=== PATIENT | male | born 1950 | race Caucasian/White ===

== ENCOUNTER 2016-10-07 07:14 | Observation (INO) | payer OTHER ==
[2016-10-07] VITALS (7 sets, daily range): BP systolic 134–160; BP diastolic 73–85; PULSE 66–89; TEMP 36.4–36.9; O2SAT 91–98; Ht 175.3 cm; Wt 81.6 kg
[~2016-10-07] VITALS: Ht 175.3 cm; Wt 81.6 kg
[~2016-10-07 07:14] MED LIST: ASPEC81 PO; CRS20 PO; CZR50 PO; FENO160T PO; FERR325T5 PO; FLOVENT INH; GLGKIT; HYDR25TA4 PO; IMD/2 PO; IMT100 PO; INSDGI SQ; NVLGI SQ; SILD100T PO; VNTHFA/IN INH
[2016-10-07] MEDS ORDERED: ONDANSETRON INJ 2 MG/ML 2 ML VIAL IV STA (07:27)
[2016-10-07] MEDS ORDERED: SODIUM CHLORIDE 0.9% 1000ML 1,000 ML IV SCH (07:30)
--- NOTE | 2016-10-07 07:30 | EMERGENCY ROOM VISIT NOTE ---
History First contact with patient: 07:21 Chief Complaint: VOMITING Stated Complaint: VOMITING/DIZZINESS Nursing Triage Summary: DIZZINESS AND VOMITING SINCE 0200. History of Present Illness The patient is a 66 year old male who presents to the Emergency Room with complaints of dizziness and nausea/vomiting since 2am today. He reports he was sleeping and at 2am woke up with the room spinning. He reports he then started vomiting frequently at 4am, and noticed feeling more dizzy than before. He is a type 1 diabetic and had taken his Lantus last night but has not taken Novolog yet today. He denies any chest or abdominal pain, or shortness of breath. He reports he was retching frequently as well. He currently still feels dizzy. He later revealed he has had a 10 year history of bilateral tinnitus. He denies any other ear, nose, or throat symptoms. He denies any recent flights or travel. Review of Systems See HPI for pertinent positives & negatives. A total of 10 systems reviewed and were otherwise negative. Past Medical/Surgical History Medical Problems: (1) ASTHMA, UNSPECIFIED (2) Diabetes mellitus (3) ESOPHAGEAL REFLUX (4) HYPERLIPIDEMIA NEC/NOS (5) SYNCOPE AND COLLAPSE Social History Smoking Status: Never Smoker Alcohol Use: none Drug Use: none Marital Status: Housing Status: lives with family Occupation Status: employed Current/Historical Medications Scheduled Aspirin (Aspirin Ec), 81 MG PO DAILY Hydrochlorothiazide (Hydrochlorothiazide), 25 MG PO DAILY Insulin Aspart (Novolog), SC SS Insulin Glargine (Lantus), 43 UNITS SC DAILY Losartan Potassium (Cozaar), 100 MG PO DAILY Pravastatin Sod (Pravastatin Sodium), 1 TAB PO DAILY Rosuvastatin Calcium (Crestor), 20 MG PO QPM Scheduled PRN Albuterol (Ventolin Hfa), 2 PUFFS INH Q4 PRN for SOB/Wheezing Fluticasone Propionate (Flovent Hfa), 2 PUFFS INH BID PRN for SOB/Wheezing Loperamide Hcl (Imodium), 2 MG PO Q4 PRN for PRN Miscellaneous Medications Glucagon (Glucagon Emergency Kit) Allergies Coded Allergies: CI Pigment Blue 63 (Verified Allergy, Unknown, ANAPHYLAXIS, 10/07/16) syncope Oseltamivir (Verified Allergy, Unknown, ANAPHYLAXIS, 10/07/16) syncope Lisinopril (Verified Adverse Reaction, Unknown, RASH, 10/07/16) Physical Exam Vital Signs Date Time Temp Pulse Resp B/P Pulse Ox O2 Delivery O2 Flow Rate FiO2 10/07/16 10:59 64 145/75 97 Room Air 82 147/85 79 159/83 10/07/16 10:57 64 18 10/07/16 09:14 67 18 142/73 95 Room Air 10/07/16 07:21 66 10/07/16 07:20 36.9 66 18 152/89 93 Room Air Physical Exam GENERAL: Awake, alert, well appearing, no distress HENT: Normocephalic, atraumatic. TM's normal. Oropharynx unremarkable. EYES: PERRL. Normal conjunctiva. Sclera non-icteric. Fundi normal. EOMI NECK: Supple. No nuchal rigidity. FROM. RESPIRATORY: CTA CARDIAC: RRR. Extremities warm and well perfused. ABDOMEN: Soft, non distended. No tenderness to palpation. No rebound or guarding. No masses. MUSCULOSKELETAL: Unremarkable. EXTREMITIES: No edema. No discoloration. Gross motor strength 5/5 bilaterally. NEURO: Normal sensorium. No sensory or motor deficits noted. Gait normal. Speech normal. Cranial nerves two through 12 intact. SKIN: Petechiae noted bilaterally below eyes. LYMPH: No adenopathy. Medical Decision & Procedures Laboratory Results 10/07/16 07:24 Red Blood Count 5.16, Mean Corpuscular Volume 78.5, Mean Corpuscular Hemoglobin 27.1, Mean Corpuscular Hemoglobin Concent 34.6, Mean Platelet Volume 8.9, Neutrophils (%) (Auto) 71.1, Lymphocytes (%) (Auto) 20.2, Monocytes (%) (Auto) 6.9, Eosinophils (%) (Auto) 1.0, Basophils (%) (Auto) 0.2, Neutrophils # (Auto) 3.49, Lymphocytes # (Auto) 0.99, Monocytes # (Auto) 0.34, Eosinophils # (Auto) 0.05, Basophils # (Auto) 0.01 10/07/16 07:24 Test 10/07/16 07:24 10/07/16 09:10 10/07/16 10:55 White Blood Count 4.91 K/uL (4.8-10.8) Red Blood Count 5.16 M/uL (4.7-6.1) Hemoglobin 14.0 g/dL (14.0-18.0) Hematocrit 40.5 % (42-52) Mean Corpuscular Volume 78.5 fL (80-100) Mean Corpuscular Hemoglobin 27.1 pg (25-34) Mean Corpuscular Hemoglobin Concent 34.6 g/dl (32-36) Platelet Count 154 K/uL (130-400) Mean Platelet Volume 8.9 fL (7.4-10.4) Neutrophils (%) (Auto) 71.1 % Lymphocytes (%) (Auto) 20.2 % Monocytes (%) (Auto) 6.9 % Eosinophils (%) (Auto) 1.0 % Basophils (%) (Auto) 0.2 % Neutrophils # (Auto) 3.49 K/uL (1.4-6.5) Lymphocytes # (Auto) 0.99 K/uL (1.2-3.4) Monocytes # (Auto) 0.34 K/uL (0.11-0.59) Eosinophils # (Auto) 0.05 K/uL (0-0.5) Basophils # (Auto) 0.01 K/uL (0-0.2) RDW Standard Deviation 39.8 fL (36.4-46.3) RDW Coefficient of Variation 14.1 % (11.5-14.5) Immature Granulocyte % (Auto) 0.6 % Immature Granulocyte # (Auto) 0.03 K/uL (0.00-0.02) Anion Gap 10.0 mmol/L (3-11) Est Creatinine Clear Calc Drug Dose 47.2 ml/min Estimated GFR () 54.7 Estimated GFR (Non- 47.2 BUN/Creatinine Ratio 12.3 (10-20) Calcium Level 9.2 mg/dl (8.5-10.1) Total Bilirubin 0.4 mg/dl (0.2-1) Aspartate Amino Transf (AST/SGOT) 18 U/L (15-37) Alanine Aminotransferase (ALT/SGPT) 23 U/L (12-78) Alkaline Phosphatase 59 U/L (45-117) Total Protein 6.7 gm/dl (6.4-8.2) Albumin 3.7 gm/dl (3.4-5.0) Globulin 3.0 gm/dl (2.5-4.0) Albumin/Globulin Ratio 1.2 (0.9-2) Lipase 170 U/L (73-393) Beta-Hydroxybutyric Acid 1.11 mg/dL (0.2-2.81) Urine Color YELLOW Urine Appearance CLEAR (CLEAR) Urine pH 7.5 (4.5-7.5) Urine Specific [place] 1.015 (1.000-1.030) Urine Protein NEG (NEG) Urine Glucose (UA) 1+ (NEG) Urine Ketones NEG (NEG) Urine Occult Blood TRACE (NEG) Urine Nitrite NEG (NEG) Urine Bilirubin NEG (NEG) Urine Urobilinogen NEG (NEG) Urine Leukocyte Esterase NEG (NEG) Urine RBC 5-10 /hpf (0-4) Urine WBC 1-5 /hpf (0-5) Urine Epithelial Cells 10-20 /lpf (0-5) Urine Bacteria NEG (NEG) Urine Hyaline Casts 1-5 /lpf (0-5) Bedside Glucose 161 mg/dl (70-99) Medications Administered Medications (Trade) Dose Ordered Sig/Jeana Route Start Time Stop Time Status Last Admin Dose Admin Sodium Chloride (Nss 1000ml) 1,000 ml @ 999 mls/hr Q1H1M IV 10/07/16 07:30 10/07/16 08:30 DC 10/07/16 07:37 999 MLS/HR Ondansetron HCl (Zofran Inj) 4 mg NOW STAT IV 10/07/16 07:27 10/07/16 07:29 DC 10/07/16 07:37 4 MG Lorazepam (Ativan Inj) 1 mg NOW STAT IV 10/07/16 07:47 10/07/16 07:48 DC 10/07/16 07:59 1 MG Meclizine HCl 25 mg 25 mg NOW STAT PO 10/07/16 10:12 10/07/16 10:13 DC 10/07/16 10:58 25 MG Sodium Chloride (Nss 500ml) 500 ml @ 999 mls/hr Q31M STAT IV 10/07/16 10:15 10/07/16 10:45 DC 10/07/16 10:15 999 MLS/HR Methylprednisolone Sodium Succinate (Solu-Medrol IV) 125 mg NOW STAT IV 10/07/16 10:34 10/07/16 10:48 DC 10/07/16 10:58 125 MG ED Course 7:24: I evaluated the patient in room B2. His was present at that time. 7:29: I ordered a CBC, CMP, Lipase, ketone level, 4mg IV Zofran, NSS bolus, Urinalysis/Microscopy. 7:40: Dr. Easton also evaluated the patient. We added 1mg IV Ativan to help his dizziness. 9:47: The patient reported not feeling better. We ordered a CT scan of the head to evaluate for any potential causes. 10:00: The patient reported continued his nausea had improved. We gave him a PO challenge of water and crackers which he tolerated somewhat, but he still felt very dehydrated, so I gave him a further 500mL bolus over 30 minutes. 10:30: I discussed further care with the patient - he reported his dizziness was persistent. We gave him 125mg Solu-Medrol IV and discussed completing 4 days of 40mg PO Prednisone daily. The patient agrees he will have to be vigilant about his sugars. 11:10: I went to see the patient again. He had received Meclizine and Solu- Medrol. He reports he still feels incredibly dizzy. He is unable to get off the bed due to this. He reports when he tried he fell backwards. He does not feel safe to go home due to his house having so many stairs as well. 11:16: I discussed the case with Brigid of the [facility]. The patient will be admitted for further evaluation of his dizziness and ambulatory disfunction. Medical Decision This is a 66 yo type 1 diabetic male who presents with dizziness and vomiting - differential includes viral gastroenteritis, vertigo, diabetic ketoacidosis, cholecystitis, dehydration, or electrolyte abnormalities. As he would not tolerate PO meclizine he was given IV Ativan to help with his dizziness. Impression Primary Impression: Dizziness Departure Information Dispostion Being Evaluated By Hospitalist Condition GOOD Referrals Kvng Lomeli M.D. (PCP) Patient Instructions My [facility] Resident Tracking Resident Involvement: Resident Care Provided Care Provided: Adult ED
[2016-10-07 07:39] LABS: BASO % 0.2 %; BASO ABS # 0.01 K/uL (0-0.2); COMPLETE YES; HEMATOCRIT 40.5 % (42-52); IG% 0.6 %; LYMPH % 20.2 %; LYMPH ABS # 0.99 K/uL (1.2-3.4); MEAN CELL VOLUME 78.5 fL (80-100); MEAN CORPUSCULAR HEMOGLOBIN 27.1 pg (25-34); MEAN CORPUSCULAR HGB CONC 34.6 g/dl (32-36); MEAN PLATELET VOLUME 8.9 fL (7.4-10.4); MONO % 6.9 %; NEUT % 71.1 %; PLATELET COUNT 154 K/uL (130-400); RED BLOOD COUNT 5.16 M/uL (4.7-6.1); WHITE BLOOD COUNT 4.91 K/uL (4.8-10.8)
[2016-10-07] MEDS ORDERED: LORAZEPAM 2 MG/ML 1 ML VIAL IV STA (07:47)
[2016-10-07 07:52] LABS: BUN/CREATININE RATIO 12.3 (10-20); CALCIUM 9.2 mg/dl (8.5-10.1); CREATININE 1.5 mg/dl (0.60-1.40); POTASSIUM 3.8 mmol/L (3.5-5.1)
[2016-10-07 07:54] LABS: ALB/GLOB RATIO 1.2 (0.9-2); BETA-HYDROXYBUTYRATE 1.11 mg/dL (0.2-2.81)
[2016-10-07] MEDS ORDERED: FLVHFA110 INH (08:07)
[2016-10-07] MEDS ORDERED: ASPI81TA28 PO (08:07)
[2016-10-07] MEDS ORDERED: PRVHFAIN INH (08:07)
[2016-10-07] MEDS ORDERED: HYDR25TA5 PO (08:07)
[2016-10-07] MEDS ORDERED: NVLG SC ×2 (08:07→12:13)
[2016-10-07] MEDS ORDERED: IMD/2 PO (08:07)
[2016-10-07] MEDS ORDERED: INSDGI SC (08:07)
[2016-10-07] MEDS ORDERED: ROSU20TA PO (08:07)
[2016-10-07] MEDS ORDERED: GLGKIT (08:07)
[2016-10-07] MEDS ORDERED: LOSA1TAB38 PO (08:07)
[2016-10-07] MEDS ORDERED: PRVC10 PO (08:10)
[2016-10-07 09:30] LABS: URINE APPEARANCE CLEAR (CLEAR); URINE BILIRUBIN NEG (NEG); URINE COLOR YELLOW; URINE NITRITE NEG (NEG); URINE PH 7.5 (4.5-7.5); URINE SPECIFIC GRAVITY 1.015 (1.000-1.030); UROBILINOGEN NEG (NEG)
[2016-10-07 09:32] LABS: MANUAL MICROSCOPIC REQUIRED? YES; REVIEW REQ? NO; SULFASALICYLIC ACID NEG (NEG)
[2016-10-07 09:34] LABS: URINE BACTERIA NEG (NEG); ZZUR CULT IF INDIC CLEAN CATCH NO
--- NOTE | 2016-10-07 10:11 | DIAGNOSTIC IMAGING REPORT ---
HEAD CT NONCONTRAST CT DOSE: 614.27 mGy.cm HISTORY: new dizziness TECHNIQUE: Multiaxial CT images of the head were performed without the use of intravenous contrast. Automated exposure control was utilized for this study. Comparison: Head CT 08/20/2016. Findings: The paranasal sinuses and mastoid air cells are clear. The calvarium and skull base are intact. The ventricles and sulci are within normal limits. There is no mass, hematoma, midline shift, or acute infarct. Impression: No acute intracranial abnormality. Electronically signed by: Jorge Alberto Burnett M.D. 10/07/2016 10:10 AM Dictated Date/Time: 10/07/2016 10:05 AM
[2016-10-07] MEDS ORDERED: MECLIZINE HCL 25 MG TAB PO STA (10:12)
[2016-10-07] MEDS ORDERED: SODIUM CHLORIDE 0.9% 500ML 500 ML IV STA (10:15)
[2016-10-07] MEDS ORDERED: METHYLPREDNISOLONE 125 MG VIAL IV STA (10:34)
[2016-10-07] MEDS ORDERED: ONDANSETRON INJ 2 MG/ML 2 ML VIAL IV PRN (12:00)
[2016-10-07] MEDS ORDERED: ACETAMINOPHEN 325 MG TAB PO PRN (12:00)
[2016-10-07] MEDS ORDERED: FENO160T4 PO (12:13)
[2016-10-07] MEDS ORDERED: INSDGIPEN SC (12:13)
[2016-10-07] MEDS ORDERED: FLUTICASONE HFA 110MCG INHALER INH PRN (12:15)
[2016-10-07] MEDS ORDERED: GLUCOSE 10 TABS/TUBE PO PRN (12:15)
[2016-10-07] MEDS ORDERED: GLUCAGON FOR INJ 1 MG VIAL SQ PRN (12:15)
[2016-10-07] MEDS ORDERED: ALBUTEROL HFA 8 GM INHALER INH PRN (12:15)
[2016-10-07] MEDS ORDERED: DEXTROSE 50% 50 ML SYR IV PRN (12:15)
[2016-10-07] MEDS ORDERED: GLUCOSE 40% GEL 15 GM TUBE PO PRN (12:15)
--- NOTE | 2016-10-07 12:44 | History and Physical ---
History & Physical Date & Time of Service: Oct 07, 2016 at 12:19 Chief Complaint: Vomiting/Dizziness Primary Care Physician: Shana Corbett PA-C History of Present Illness Source: patient This is a 66 y/o male with PMH of DM 1, HTN, Dyslipidemia and other problems as outlined below who presents to the ED c/o dizziness that began this morning. Pt reports that he woke up around 0200 with "the room spinning" around him. His sxs were aggravated with laying on his L side and ambulating. Sxs were assoc with nausea and 3 episodes of vomiting. He has never had similar sxs in the past. Pt reports that he has had tinnitus in both his ears for 7-10 years but was told there was nothing that could be done for it. Pt has a 1 month history of URI sxs. Pt denies fever/chills, diplopia, diaphoresis, chest pain, palpitations, SOB, abd pain, bowel or bladder issues, LE edema, calf pain, unilateral weakness, slurred speech, facial droop or difficulty swallowing. In the ED, pt has + orthostatic vitals. electrolytes WNL. Creat 1.5. CT head is negative. Pt currently feel okay as long as he does not move. He will be admitted for further evaluation and treatment. Past Medical/Surgical History Medical Problems: (1) Asthma Status: Chronic (2) CKD (chronic kidney disease) stage 3, GFR 30-59 ml/min Status: Chronic (3) Diabetes mellitus type I Status: Chronic (4) Dyslipidemia Status: Chronic (5) HTN (hypertension) Status: Chronic Surgical Problems: (1) H/O cataract removal with insertion of prosthetic lens Status: Resolved Social History Smoking Status: Former Smoker (2 pack year history; quit at 17y/o ) Alcohol Use: none Drug Use: none Marital Status: Housing status: lives with family Occupational Status: employed Immunizations History of Influenza Vaccine: Yes Influenza Vaccine Date: May 19, 2012 History of Tetanus Vaccine?: No Tetanus Immunization Date: Apr 30, 2010 History of Pneumococcal: Yes Pneumococcal Date: Dec 17, 2010 History of Hepatitis B Vaccine: No Multi-Drug Resistant Organisms History of MDRO: No Allergies Coded Allergies: CI Pigment Blue 63 (Verified Allergy, Unknown, ANAPHYLAXIS, 10/07/16) syncope Oseltamivir (Verified Allergy, Unknown, ANAPHYLAXIS, 10/07/16) syncope Lisinopril (Verified Adverse Reaction, Unknown, RASH, 10/07/16) Home Medications Scheduled Aspirin (Aspirin Ec), 81 MG PO DAILY Fenofibrate (Lofibra), 160 MG PO DAILY Hydrochlorothiazide (Hydrochlorothiazide), 25 MG PO DAILY Insulin Aspart (Novolog), 75 UNITS SC DAILY Insulin Glargine (Lantus Solostar), 43 UNITS SC QPM Losartan Potassium (Cozaar), 100 MG PO DAILY Rosuvastatin Calcium (Crestor), 20 MG PO QPM Scheduled PRN Albuterol (Ventolin Hfa), 2 PUFFS INH Q4 PRN for SOB/Wheezing Fluticasone Propionate (Flovent Hfa), 2 PUFFS INH BID PRN for SOB/Wheezing Loperamide Hcl (Imodium), 2 MG PO Q4 PRN for PRN Miscellaneous Medications Glucagon (Glucagon Emergency Kit) Review of Systems Constitutional: No chills, No fatigue, No fever, No sweats, No weakness Eyes: No diplopia, No worsening of vision ENT: No hearing loss, No trouble swallowing Respiratory: No cough, No shortness of breath Cardiovascular: No chest pain, No claudication, No edema Abdomen: + nausea, + vomiting, No constipation, No diarrhea, No pain Musculoskeletal: No calf pain, No swelling Genitourinary - Male: No dysuria Neurologic: + balance problems, + vertigo, No weakness Psychiatric: No depression symptoms Endocrine: No fatigue Hematologic / Lymphatic: No abnormal bleeding/bruising Integumentary: No new/changing skin lesions Physical Exam Vital Signs Date Time Temp Pulse Resp B/P Pulse Ox O2 Delivery O2 Flow Rate FiO2 10/07/16 12:03 73 10/07/16 10:59 64 145/75 97 Room Air 82 147/85 79 159/83 10/07/16 10:57 64 18 10/07/16 09:14 67 18 142/73 95 Room Air 10/07/16 07:21 66 10/07/16 07:20 36.9 66 18 152/89 93 Room Air General Appearance: WD/WN, no apparent distress, + pertinent finding (Pt is sitting up in bed with at bedside ) Head: normocephalic, atraumatic Eyes: normal inspection, PERRL, + pertinent finding (horizontal nystagmus with EOM) ENT: normal ENT inspection, TMs normal (unable to visualize R TM due to cerumen impaction) Neck: supple Respiratory/Chest: chest non-tender, lungs clear, normal breath sounds, no respiratory distress Cardiovascular: regular rate, rhythm, no edema, no murmur Abdomen/GI: normal bowel sounds, non tender, soft Back: normal inspection Extremities/Musculoskelatal: normal inspection, no calf tenderness, no pedal edema 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, no motor/sensory deficits, alert, normal mood/affect, oriented x 3 Skin: normal color, warm/dry Diagnostics Laboratory Results Results Past 24 Hours Test 10/07/16 07:24 10/07/16 09:10 10/07/16 10:55 Range/Units White Blood Count 4.91 4.8-10.8 K/uL Red Blood Count 5.16 4.7-6.1 M/uL Hemoglobin 14.0 14.0-18.0 g/dL Hematocrit 40.5 42-52 % Mean Corpuscular Volume 78.5 80-100 fL Mean Corpuscular Hemoglobin 27.1 25-34 pg Mean Corpuscular Hemoglobin Concent 34.6 32-36 g/dl Platelet Count 154 130-400 K/uL Mean Platelet Volume 8.9 7.4-10.4 fL Neutrophils (%) (Auto) 71.1 % Lymphocytes (%) (Auto) 20.2 % Monocytes (%) (Auto) 6.9 % Eosinophils (%) (Auto) 1.0 % Basophils (%) (Auto) 0.2 % Neutrophils # (Auto) 3.49 1.4-6.5 K/uL Lymphocytes # (Auto) 0.99 1.2-3.4 K/uL Monocytes # (Auto) 0.34 0.11-0.59 K/uL Eosinophils # (Auto) 0.05 0-0.5 K/uL Basophils # (Auto) 0.01 0-0.2 K/uL RDW Standard Deviation 39.8 36.4-46.3 fL RDW Coefficient of Variation 14.1 11.5-14.5 % Immature Granulocyte % (Auto) 0.6 % Immature Granulocyte # (Auto) 0.03 0.00-0.02 K/uL Sodium Level 144 136-145 mmol/L Potassium Level 3.8 3.5-5.1 mmol/L Chloride Level 104 98-107 mmol/L Carbon Dioxide Level 30 21-32 mmol/L Anion Gap 10.0 3-11 mmol/L Blood Urea Nitrogen 19 7-18 mg/dl Creatinine 1.50 0.60-1.40 mg/dl Est Creatinine Clear Calc Drug Dose 47.2 ml/min Estimated GFR () 54.7 Estimated GFR (Non- 47.2 BUN/Creatinine Ratio 12.3 10-20 Random Glucose 208 70-99 mg/dl Calcium Level 9.2 8.5-10.1 mg/dl Total Bilirubin 0.4 0.2-1 mg/dl Aspartate Amino Transf (AST/SGOT) 18 15-37 U/L Alanine Aminotransferase (ALT/SGPT) 23 12-78 U/L Alkaline Phosphatase 59 45-117 U/L Total Protein 6.7 6.4-8.2 gm/dl Albumin 3.7 3.4-5.0 gm/dl Globulin 3.0 2.5-4.0 gm/dl Albumin/Globulin Ratio 1.2 0.9-2 Lipase 170 73-393 U/L Beta-Hydroxybutyric Acid 1.11 0.2-2.81 mg/dL Urine Color YELLOW Urine Appearance CLEAR CLEAR Urine pH 7.5 4.5-7.5 Urine Specific [place] 1.015 1.000-1.030 Urine Protein NEG NEG Urine Glucose (UA) 1+ NEG Urine Ketones NEG NEG Urine Occult Blood TRACE NEG Urine Nitrite NEG NEG Urine Bilirubin NEG NEG Urine Urobilinogen NEG NEG Urine Leukocyte Esterase NEG NEG Urine RBC 5-10 0-4 /hpf Urine WBC 1-5 0-5 /hpf Urine Epithelial Cells 10-20 0-5 /lpf Urine Bacteria NEG NEG Urine Hyaline Casts 1-5 0-5 /lpf Bedside Glucose 161 70-99 mg/dl Diagnostic Radiology HEAD CT IMPRESSION: No acute intracranial abnormality. Impression Assessment and Plan VERTIGO LIKELY DUE TO VESTIBULAR NEURITIS pt presented with vertigo assoc with N/V; recent h/o URI -admit observation status to med/surg -likely due to vestibular neuritis in setting of recent h/o URI -+ orthostatic vitals in ED; otherwise stable -CT head is negative; will obtain brain MRI for further evaluation to ensure stroke not present -electrolytes unremarkable -received IVF in ED -will start Prednisone taper -consult neuro, Dr. Anguiano-pending input -monitor NAUSEA/VOMITING: RESOLVED -likely due to above -electrolytes unremarkable -monitor CKD STAGE 3 -creatinine at baseline around 1.5 -received IVF in ED -continue to monitor with daily prp and avoid nephrotoxic agents when able DM 1 -last A1C 7.6 -hold NovoLog -cont Lantus and start ISS -monitor BSG AC HS ASTHMA -stable; no evidence of acute exacerbation -cont PRN inhaler HTN -BP mildly elevated; did not take meds this morning -cont HCTZ and losartan -monitor DYSLIPIDEMIA -cont statin and fenofibrate DVT PROPHYLAXIS -subq heparin CODE STATUS -FULL CODE status DISPO Observation status until further workup is complete. Pt seen in collaboration with Dr. Perera. Please see her addendum for further details. Thanks! 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 Y/N: Yes Risk Level: Moderate Given or contraindicated: Unfractionated heparin SQ
[2016-10-07] MEDS ORDERED: MECLIZINE HCL 25 MG TAB PO PRN (12:45)
[2016-10-07] MEDS ORDERED: LORAZEPAM 2 MG/ML 1 ML VIAL IV PRN (12:45)
--- NOTE | 2016-10-07 12:55 | Progress Note ---
Progress Note ATTENDING ADDENDUM: I have seen and examined the patient and agree with the assessment and plan as stated above. This is a 66 yoM with risk factors for stroke including diabetes and hyperlipidemia. The patient is reporting acute postural instability, however, states that once he gets ambulating he feels OK. The dizziness is worse with head movement, but worse still with reclining his HOB or going from sitting to standing. 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 He reports recently having a long protracted URI illness, which he describes as a common cold. This began early August and lasted the entire month. He reports only taking cough drops for his symptoms. He does have a 10 yr history of bilateral tinnitus and reports that this is worse since this morning, L>R. He reports feeling like he wants to lean toward the left side. He denies any sensation loss, difficulty speaking or swallowing , difficulty moving his arms, headache, photophobia, sonophobia. On exam his orthostatics are positive but he is otherwise hemodynamically stable with 145/79 , P 66, afebrile. MS is intact. CN 2-12 intact with peripheral nystagmus noted; no vertical nystagmus seen. Strength 5/5 throughout all extremities and hands. Sensation intact throughout. Reflexes could not be elicited in knees, ankles or forearm. No dysmetria and coordination checked with heel to escobar (while seated) intact. Pt could not stand or walk 2/2 extreme dizziness and fall risk. Chest and heart exam were normal. EKG SR 65, CT head negative, creat at baseline. Does not appear to be clinically dehydrated. Clinical picture favors vestibular neuritis, however, will obtain MRI brain to look for cerebellar stroke. Will not obtain MRA in order to avoid possibly unnecessary contrast exposure in this man with CKD III. The patient and I are in agreement with this, and he can undergo this later if necessary. Will provide supportive care with antiemetics, meclizine, and ativan as needed for dizziness and treat with a short prednisone taper. Appreciate Neurology consult to ensure central causes are ruled out. Otherwise, agree with plan as stated above. Also, noticed RBCs and blood on UA. Would recommend repeat as outpatient. Dorothy Mckinney DO (Hospitalist)
[2016-10-07] MEDS ORDERED: IV FLUIDS COMPLETED PRN ×2 (14:00)
[2016-10-07 14:36] LABS: PROTHROMBIN TIME (PATIENT) 10.7 SECONDS (9.0-12.0)
--- NOTE | 2016-10-07 15:34 | DIAGNOSTIC IMAGING REPORT ---
MRI OF THE BRAIN WITHOUT AND WITH IV CONTRAST CLINICAL HISTORY: vertigo/ambulatory dysfunction COMPARISON STUDY: No previous studies for comparison. TECHNIQUE: Utilizing a 1.5 Tanika magnet and dedicated coil, multiplanar, multiecho imaging of the brain was performed pre and postcontrast administration. IV administration of 8 mL of Gadavist contrast was uneventful. FINDINGS: Diffusion-weighted images show no acute ischemic insult. Signal characteristics are otherwise unremarkable. Ventricular system is midline. There is no evidence for abnormal postcontrast enhancement. IMPRESSION: Normal study. Electronically signed by: Brian Plascencia M.D. 10/07/2016 3:33 PM Dictated Date/Time: 10/07/2016 3:32 PM
[2016-10-07] MEDS ORDERED: LORAZEPAM INJ 1 MG in SYRINGE 0.5 ML IV PRN (16:00)
--- NOTE | 2016-10-07 16:10 | Neurology Consultation ---
Neurology Consultation Date of Consultation: Oct 07, 2016. Attending Physician: Kong Barraza MD Primary Care Physician: Shana Corbett PA-C Reason for Consultation: vertigo History of Present Illness Source: patient, spouse Leo is a 66 year old male with PMH of DM 1, HTN, DL. Who was seen in the ED because of dizziness that began this morning. He woke up around 0200 with "the room spinning" around him. He thought is may be his DM but he had no sweating which usually happens when his sugar is low. He fell back to sleep and 2 hours later he woke with the same symptoms he tried to walk to the bathroom but the room spinning was so bad he couldn't walk. He had nausea and 3 episodes of vomiting. He denies having any symptoms like this in the past. 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 He did have a recent URI. Pt denies fever/chills, diplopia, diaphoresis, chest pain, palpitations, SOB, abdominal pain, slurred speech, swallowing issues, vision changes, one side weakness, numbness or tingling. Orthostatic vitals were completed in the ED. There is no family history of vertigo other than his . Both of his parents are , he has one sister no contact with and no children. His DM is controlled fairly well with insulin and HTN usually runs a little high. Social History Smoking Status: Never smoker Alcohol Use: none Drug Use: none Marital Status: Housing Status: lives with family Occupation Status: employed Allergies Coded Allergies: CI Pigment Blue 63 (Verified Allergy, Unknown, ANAPHYLAXIS, 10/07/16) syncope Oseltamivir (Verified Allergy, Unknown, ANAPHYLAXIS, 10/07/16) syncope Lisinopril (Verified Adverse Reaction, Unknown, RASH, 10/07/16) Current Inpatient Medications Current Inpatient Medications Medications (Trade) Dose Ordered Sig/Jeana Route Start Time Stop Time Status Last Admin Dose Admin Heparin Sodium (Porcine) (Heparin Sq 5000 Unit/0.5ml) 5,000 unit Q8H SQ 10/07/16 22:00 11/06/16 21:59 Acetaminophen (Tylenol Tab) 650 mg Q4H PRN PO 10/07/16 12:00 11/06/16 11:59 Ondansetron HCl (Zofran Inj) 4 mg Q6H PRN IV 10/07/16 12:00 11/06/16 11:59 Insulin Aspart (novoLOG ASPART) SLIDING SCALE If C... ACHS SC 10/07/16 16:30 11/06/16 16:29 Glucose (Glucose 40% Gel) 15-30 GRAMS 15 GRAMS... UD PRN PO 10/07/16 12:15 11/06/16 12:14 Glucose (Glucose Chew Tab) 4-8 Tablets 4 Tabl... UD PRN PO 10/07/16 12:15 11/06/16 12:14 Dextrose (Dextrose 50% 50ML Syringe) 25-50ML OF 50% DW IV FOR... UD PRN IV 10/07/16 12:15 11/06/16 12:14 Glucagon (Glucagon Inj) 1 mg UD PRN SQ 10/07/16 12:15 11/06/16 12:14 Albuterol (Ventolin Hfa Inhaler) 2 puffs Q4 PRN INH 10/07/16 12:15 11/06/16 12:14 Aspirin (Ecotrin Tab) 81 mg DAILY PO 10/08/16 09:00 11/07/16 08:59 Fluticasone Propionate (Flovent Hfa 110MCG Inhaler) 2 puffs BID PRN INH 10/07/16 12:15 11/06/16 12:14 Hydrochlorothiazide (Hydrochlorothiazide Tab) 25 mg DAILY PO 10/08/16 09:00 11/07/16 08:59 Insulin Glargine (Lantus Solostar Pen) 43 unit QPM SC 10/07/16 21:00 11/06/16 20:59 Losartan Potassium (coZAAR TAB) 100 mg DAILY PO 10/08/16 09:00 11/07/16 08:59 Rosuvastatin Calcium (Crestor Tab) 20 mg QPM PO 10/07/16 21:00 11/06/16 20:59 Miscellaneous Information (Order Awaiting Action) 1 ea QS N/A 10/07/16 16:00 11/06/16 15:59 Prednisone (PredniSONE TAB) 60 mg Taper Q24H PO 10/07/16 09:00 10/17/16 08:59 Lorazepam (Ativan Inj) 1 mg Q8H PRN IV 10/07/16 12:45 11/06/16 12:44 Meclizine HCl (Antivert Tab) 25 mg Q6H PRN PO 10/07/16 12:45 11/06/16 12:44 Miscellaneous 1 ea 1 ea PRN PRN N/A 10/07/16 14:00 10/07/17 13:59 Lorazepam/Syringe (Ativan Inj/ Syringe) 1 ml @ 1 mls/min Q8H PRN IV 10/07/16 16:00 11/06/16 15:59 Physical Exam Vital Signs (Past 24 Hrs): Date Time Temp Pulse Resp B/P Pulse Ox O2 Delivery O2 Flow Rate FiO2 10/07/16 15:40 36.9 73 18 153/85 95 Room Air 10/07/16 14:10 70 16 148/84 94 Room Air 10/07/16 13:04 62 18 148/78 98 Room Air 10/07/16 12:04 36.9 66 18 145/79 98 Room Air 10/07/16 12:03 73 10/07/16 10:59 64 145/75 97 Room Air 82 147/85 79 159/83 10/07/16 10:57 64 18 10/07/16 09:14 67 18 142/73 95 Room Air 10/07/16 07:21 66 10/07/16 07:20 36.9 66 18 152/89 93 Room Air Physical Exam: Constitutional: appearance nourished, healthy and normal Ears, Nose, Mouth and Throat: mucous membranes moist, no injection and skin normal, eyes normal Cardiovascular: normal S-1 and S-2 and regular rate and rhythm Respiratory: clear to auscultation (CTA) and no rales, ronchi or wheeze Musculoskeletal: no peripheral edema and good distal pulses Skin: no stigmata of neurocutaneous disease noted and normal and intact Eyes: extraocular muscles intact (EOMI) and pupils equal, round and reactive to light (PERRL), good vascular pulsations, disc flat NEUROLOGIC EXAMINATION: Mental status: Alert and interactive Oriented to full date and location Oriented to person Speech fluent with no evidence of aphasia Cranial Nerves smile eye brow raise symmetric, tongue midline Reflexes: Deep tendon reflexes were symmetrical and graded 2/5. Plantar responses were flexor. Sensory: no deficit to cool or vibration, GT proprioception in tact sitting up in bed, Jose Luis maneuver done to left, nystagmus which is fatigable, x 2 with no vomiting Coordination: finger to nose with no bi pass or tremor Gait/Stance: sitting up in bed Motor: Negative for pronator drift of out stretched arms with eyes closed. 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91 K/uL (4.8-10.8) Red Blood Count 5.16 M/uL (4.7-6.1) Hemoglobin 14.0 g/dL (14.0-18.0) Hematocrit 40.5 % (42-52) Mean Corpuscular Volume 78.5 fL (80-100) Mean Corpuscular Hemoglobin 27.1 pg (25-34) Mean Corpuscular Hemoglobin Concent 34.6 g/dl (32-36) Platelet Count 154 K/uL (130-400) Mean Platelet Volume 8.9 fL (7.4-10.4) Neutrophils (%) (Auto) 71.1 % Lymphocytes (%) (Auto) 20.2 % Monocytes (%) (Auto) 6.9 % Eosinophils (%) (Auto) 1.0 % Basophils (%) (Auto) 0.2 % Neutrophils # (Auto) 3.49 K/uL (1.4-6.5) Lymphocytes # (Auto) 0.99 K/uL (1.2-3.4) Monocytes # (Auto) 0.34 K/uL (0.11-0.59) Eosinophils # (Auto) 0.05 K/uL (0-0.5) Basophils # (Auto) 0.01 K/uL (0-0.2) RDW Standard Deviation 39.8 fL (36.4-46.3) RDW Coefficient of Variation 14.1 % (11.5-14.5) Immature Granulocyte % (Auto) 0.6 % Immature Granulocyte # (Auto) 0.03 K/uL (0.00-0.02) Prothrombin Time 10.7 SECONDS (9.0-12.0) Prothromb Time International Ratio 1.0 (0.9-1.1) Activated Partial Thromboplast Time 24.7 SECONDS (21.0-31.0) Partial Thromboplastin Ratio 1.0 Anion Gap 10.0 mmol/L (3-11) Est Creatinine Clear Calc Drug Dose 47.2 ml/min Estimated GFR () 54.7 Estimated GFR (Non- 47.2 BUN/Creatinine Ratio 12.3 (10-20) Calcium Level 9.2 mg/dl (8.5-10.1) Total Bilirubin 0.4 mg/dl (0.2-1) Aspartate Amino Transf (AST/SGOT) 18 U/L (15-37) Alanine Aminotransferase (ALT/SGPT) 23 U/L (12-78) Alkaline Phosphatase 59 U/L (45-117) Total Protein 6.7 gm/dl (6.4-8.2) Albumin 3.7 gm/dl (3.4-5.0) Globulin 3.0 gm/dl (2.5-4.0) Albumin/Globulin Ratio 1.2 (0.9-2) Lipase 170 U/L (73-393) Beta-Hydroxybutyric Acid 1.11 mg/dL (0.2-2.81) Hepatitis C Antibody Screen NEG (NEG) Urine Color YELLOW Urine Appearance CLEAR (CLEAR) Urine pH 7.5 (4.5-7.5) Urine Specific Allen 1.015 (1.000-1.030) Urine Protein NEG (NEG) Urine Glucose (UA) 1+ (NEG) Urine Ketones NEG (NEG) Urine Occult Blood TRACE (NEG) Urine Nitrite NEG (NEG) Urine Bilirubin NEG (NEG) Urine Urobilinogen NEG (NEG) Urine Leukocyte Esterase NEG (NEG) Urine RBC 5-10 /hpf (0-4) Urine WBC 1-5 /hpf (0-5) Urine Epithelial Cells 10-20 /lpf (0-5) Urine Bacteria NEG (NEG) Urine Hyaline Casts 1-5 /lpf (0-5) Bedside Glucose 161 mg/dl (70-99) Imaging MRI with and without contrast, FINDINGS: Diffusion-weighted images show no acute ischemic insult. Signal characteristics are otherwise unremarkable. Ventricular system is midline. There is no evidence for abnormal postcontrast enhancement. Impression 56 year old female vertigo with + Jose Luis maneuver Plan 1. MRI with and without contrast of the brain -no acute findings 2. meclizine 25 mg q 6 hours PRN 3. zofran prn for nausea 4. PT for jose luis training 5. blood pressure and DM and medical issues per primary team 6. OOB only with assistance, provide urinal 7. will continue to follow I have seen and discussed above patient with Dr Zonia Ellison, neurology Pt seen and examined. Mild horiz nystagmus on r lateral gaze.Pt has positive provocative head manuevers to left with latency and fatiguability. Nml Motor, sensory, cerebellar. Gait NT. This is BPPV. Labrinthine exercises rec, with Jose Luis manuever from PT. ERIC Ellison MD
[2016-10-07] MEDS: INSULIN ASPART 100 UNITS/ML 3 ML PEN SC SCH ×2 (18:07→21:38)
[2016-10-07] MEDS ORDERED: ROSUVASTATIN CALCIUM 20 MG TAB PO SCH (21:00)
[2016-10-07] MEDS ORDERED: INSULIN GLARGINE SOLOSTAR 100 UNITS/ML 3 ML PEN SC SCH (21:00)
[2016-10-07] MEDS: HEPARIN SOD 5000 UNIT/0.5 ML CARP SQ SCH (21:39)
[2016-10-08] VITALS: O2SAT 95
[2016-10-08 04:00] VITALS: BP 155/83; PULSE 69; TEMP 36.5; O2SAT 95
[2016-10-08] MEDS ORDERED: INSULIN GLARGINE SOLOSTAR 100 UNITS/ML 3 ML PEN SC ONE (04:30)
[2016-10-08] MEDS ORDERED: INSULIN ASPART 100 UNITS/ML 3 ML PEN SC ONE (05:32)
[2016-10-08] MEDS: HEPARIN SOD 5000 UNIT/0.5 ML CARP SQ SCH ×2 (05:39→14:12)
[2016-10-08 06:56] LABS: HEMATOCRIT 39.5 % (42-52); MEAN CORPUSCULAR HGB CONC 34.2 g/dl (32-36); MEAN PLATELET VOLUME 9.7 fL (7.4-10.4); PLATELET COUNT 184 K/uL (130-400); WHITE BLOOD COUNT 9.56 K/uL (4.8-10.8)
[2016-10-08 06:59] LABS: ESTIMATED AVERAGE GLUCOSE 169 mg/dl; HA1C FLAG Normal (Normal)
[2016-10-08 07:33] LABS: BUN/CREATININE RATIO 14.6 (10-20); CREATININE 1.4 mg/dl (0.60-1.40); POTASSIUM 3.8 mmol/L (3.5-5.1)
[2016-10-08 07:55] VITALS: BP 144/72; PULSE 75; TEMP 36.6; O2SAT 96
[2016-10-08] MEDS: INSULIN ASPART 100 UNITS/ML 3 ML PEN SC SCH ×2 (08:33→12:06)
[2016-10-08] MEDS ORDERED: LOSARTAN POTASSIUM 50 MG TAB PO SCH (09:00)
[2016-10-08] MEDS ORDERED: HYDROCHLOROTHIAZIDE 25 MG TAB PO SCH (09:00)
[2016-10-08] MEDS ORDERED: ASPIRIN 81 MG ECTAB PO SCH (09:00)
[2016-10-08 11:22] VITALS: BP 148/74; PULSE 72; TEMP 36.7; O2SAT 91
[2016-10-08] MEDS ORDERED: NURSING VERBAL MED ORDER ONE (12:15)
--- NOTE | 2016-10-08 13:38 | Progress Note ---
Medicine Progress Note Date & Time of Visit: Oct 08, 2016 at 13:19. Subjective Pt was seen and examined sitting in bed comfortable with no distress with at beside Pt said that he feels fine. He said that he does not feel any dizzy denies any chest pain, palpitation, sob and N/V Objective Last 8 Hrs Date Time Temp Pulse Resp B/P Pulse Ox O2 Delivery O2 Flow Rate FiO2 10/08/16 12:00 Room Air 10/08/16 11:22 36.7 72 18 148/74 91 Room Air 10/08/16 08:00 Room Air 10/08/16 07:55 36.6 75 20 144/72 96 Room Air Physical Exam: General- very pleasant, no distress Head- atraumatic Eyes- PERRL, EOMI ENT- oropharynx clear Neck- supple, no JVD Lungs- clear to auscultation and percussion Heart- regular rhythm; no murmur Abdomen- normal bowel sounds, soft Extremities-no calf tenderness Neuro- alert, oriented x 3; PERRL, EOMI; no facial palsy; no dysarthria Skin- warm & dry Laboratory Results: Last 24 Hours Test 10/07/16 15:58 10/07/16 16:34 10/07/16 20:20 10/08/16 04:23 Bedside Glucose 227 mg/dl 214 mg/dl 281 mg/dl 243 mg/dl Test 10/08/16 06:36 10/08/16 07:45 10/08/16 11:27 White Blood Count 9.56 K/uL Red Blood Count 5.00 M/uL Hemoglobin 13.5 g/dL Hematocrit 39.5 % Mean Corpuscular Volume 79.0 fL Mean Corpuscular Hemoglobin 27.0 pg Mean Corpuscular Hemoglobin Concent 34.2 g/dl RDW Standard Deviation 40.0 fL RDW Coefficient of Variation 14.0 % Platelet Count 184 K/uL Mean Platelet Volume 9.7 fL Sodium Level 143 mmol/L Potassium Level 3.8 mmol/L Chloride Level 106 mmol/L Carbon Dioxide Level 25 mmol/L Anion Gap 12.0 mmol/L Blood Urea Nitrogen 21 mg/dl Creatinine 1.40 mg/dl Est Creatinine Clear Calc Drug Dose 50.5 ml/min Estimated GFR () 59.4 Estimated GFR (Non- 51.3 BUN/Creatinine Ratio 14.6 Random Glucose 228 mg/dl Estimated Average Glucose 169 mg/dl Hemoglobin A1c 7.5 % Calcium Level 9.0 mg/dl Bedside Glucose 211 mg/dl 288 mg/dl Assessment & Plan VERTIGO Mostly related to vestibular neuritis Recent episode of URI CT head and MRI of the head are negative Asymptomatic On Prednisone taper Neuro on board Physical therapy on board and pt safe to be discharge home Recommend vestibular rehab as an outpatient PT NAUSEA/VOMITING Resolved CKD STAGE 3 -creatinine baseline around 1.5 Today creatine 1.4 continue monitor BMP avoid nephrotoxic agents DM 1 A1C 7.5 (10/08/16) Monitor BS due to the prednisone cont Lantus and insulin coverage ASTHMA -stable -cont PRN inhaler HTN continue monitor BP -continue DYSLIPIDEMIA -cont statin and fenofibrate DVT PROPHYLAXIS -subq heparin CODE STATUS FULL CODE DISPOSITION Will discharge home today Consultants: Neurology Physical Therapy Current Inpatient Medications: Current Inpatient Medications Medications (Trade) Dose Ordered Sig/Jeana Route Start Time Stop Time Status Last Admin Dose Admin Heparin Sodium (Porcine) (Heparin Sq 5000 Unit/0.5ml) 5,000 unit Q8H SQ 10/07/16 22:00 11/06/16 21:59 10/08/16 05:39 5,000 UNIT Acetaminophen (Tylenol Tab) 650 mg Q4H PRN PO 10/07/16 12:00 11/06/16 11:59 Ondansetron HCl (Zofran Inj) 4 mg Q6H PRN IV 10/07/16 12:00 11/06/16 11:59 Insulin Aspart (novoLOG ASPART) SLIDING SCALE If C... ACHS SC 10/07/16 16:30 11/06/16 16:29 10/08/16 12:06 23 UNITS Glucose (Glucose 40% Gel) 15-30 GRAMS 15 GRAMS... UD PRN PO 10/07/16 12:15 11/06/16 12:14 Glucose (Glucose Chew Tab) 4-8 Tablets 4 Tabl... UD PRN PO 10/07/16 12:15 11/06/16 12:14 Dextrose (Dextrose 50% 50ML Syringe) 25-50ML OF 50% DW IV FOR... UD PRN IV 10/07/16 12:15 11/06/16 12:14 Glucagon (Glucagon Inj) 1 mg UD PRN SQ 10/07/16 12:15 11/06/16 12:14 Albuterol (Ventolin Hfa Inhaler) 2 puffs Q4 PRN INH 10/07/16 12:15 11/06/16 12:14 Aspirin (Ecotrin Tab) 81 mg DAILY PO 10/08/16 09:00 11/07/16 08:59 10/08/16 08:30 81 MG Fluticasone Propionate (Flovent Hfa 110MCG Inhaler) 2 puffs BID PRN INH 10/07/16 12:15 11/06/16 12:14 Hydrochlorothiazide (Hydrochlorothiazide Tab) 25 mg DAILY PO 10/08/16 09:00 11/07/16 08:59 10/08/16 08:30 25 MG Losartan Potassium (coZAAR TAB) 100 mg DAILY PO 10/08/16 09:00 11/07/16 08:59 10/08/16 08:30 100 MG Rosuvastatin Calcium (Crestor Tab) 20 mg QPM PO 10/07/16 21:00 11/06/16 20:59 10/07/16 21:37 20 MG Miscellaneous Information (Order Awaiting Action) 1 ea QS N/A 10/07/16 16:00 11/06/16 15:59 Prednisone (PredniSONE TAB) 60 mg Taper Q24H PO 10/07/16 09:00 10/17/16 08:59 10/08/16 08:31 60 MG Lorazepam (Ativan Inj) 1 mg Q8H PRN IV 10/07/16 12:45 11/06/16 12:44 Meclizine HCl (Antivert Tab) 25 mg Q6H PRN PO 10/07/16 12:45 11/06/16 12:44 Miscellaneous 1 ea 1 ea PRN PRN N/A 10/07/16 14:00 10/07/17 13:59 Lorazepam/Syringe (Ativan Inj/ Syringe) 1 ml @ 1 mls/min Q8H PRN IV 10/07/16 16:00 11/06/16 15:59 Insulin Glargine (Lantus Solostar Pen) 50 unit HS SC 10/08/16 21:00 11/07/16 20:59
[2016-10-08 15:31] VITALS: BP 139/66; PULSE 73; TEMP 36.9; O2SAT 93
--- NOTE | 2016-10-08 16:37 | Discharge Instructions ---
Discharge Instructions Admission Reason for Admission: Vertigo Discharge Discharge Diagnosis / Problem: vestibular neuritis, Diabetes, Asthma Discharge Goals Goal(s): Decrease discomfort, Improve function, Improve disease control Activity Recommendations Activity Limitations: resume your previous activity (as tolerated) . Instructions / Follow-Up Instructions / Follow-Up Please follow up with Dr. Santana on Oct 15 at 11:30 am Fall precaution Follow up with physical therapy for vestibular rehab No driving for now until your symptoms completely resolve Current Hospital Diet Patient's current hospital diet: Diabetes Type 1 Diet Discharge Diet Recommended Diet: Diabetes Type 1 Diet Pending Studies Studies pending at discharge: no Laboratory Results Hemoglobin A1c Test 10/08/16 06:36 Range/Units Estimated Average Glucose 169 mg/dl Hemoglobin A1c 7.5 H 4.5-5.6 % Medical Emergencies . Who to Call and When: Medical Emergencies: If at any time you feel your situation is an emergency, please call 911 immediately. . Non-Emergent Contact Non-Emergency issues call your: Primary Care Provider Call Non-Emergent contact if: you have any medication questions . . "Provider Documentation" section prepared by Gisselle Olivas. VTE Core Measure Inpt VTE Proph given/why not?: Unfractionated heparin SQ
[2016-10-08 16:45] VITALS: BP 139/66; PULSE 73; TEMP 36.9; O2SAT 93
--- NOTE | 2016-10-08 19:44 | EMERGENCY ROOM VISIT NOTE ---
ED Visit Note First contact with patient: 07:21 Resident Physician Supervision Note: I interviewed and examined the patient. Discussed with Dr. Wright and agree with findings and plan as documented in the note. Any exceptions or clarifications are listed here: This patient was evaluated and appeared to be in no significant distress. Patient was hydrated with normal saline solution, given IV Ativan, IV Zofran. CT scan of the head was performed and is negative. He continued to suffer from dizziness and nausea. I suspect he is suffering from intractable vertigo at this time. He did get oral meclizine and IV Solu-Medrol without relief. Case was discussed with the hospitalist service will evaluate the patient for admission and further management. Diagnosis: Intractable vertigo Documented By: Izabel Easton
[2016-10-08] MEDS ORDERED: INSULIN GLARGINE SOLOSTAR 100 UNITS/ML 3 ML PEN SC SCH (21:00)
--- NOTE | 2016-10-11 00:57 | Discharge Summary ---
Discharge Summary Admission Date: Oct 07, 2016 at 13:16 Discharge Date: Oct 08, 2016 Discharge Disposition: Home Principal Diagnosis: Vertigo Secondary Diagnoses/Problems: Vestibular neuritis Diabetes Type 1 Asthma CKD stage 3 HTN Procedures: MRI OF THE BRAIN WITHOUT AND WITH IV CONTRAST CLINICAL HISTORY: vertigo/ambulatory dysfunction COMPARISON STUDY: No previous studies for comparison. TECHNIQUE: Utilizing a 1.5 Tanika magnet and dedicated coil, multiplanar, multiecho imaging of the brain was performed pre and postcontrast administration. IV administration of 8 mL of Gadavist contrast was uneventful. FINDINGS: Diffusion-weighted images show no acute ischemic insult. Signal characteristics are otherwise unremarkable. Ventricular system is midline. There is no evidence for abnormal postcontrast enhancement. IMPRESSION: Normal study. Electronically signed by: Brian Plascencia M.D. 10/07/2016 3:33 PM Dictated Date/Time: 10/07/2016 3:32 PM Consultations: Neurology Physical Therapy Medication Reconciliation Continued Medications: Albuterol (Ventolin Hfa) 60 Puffs/5400 Mcg Aers 2 PUFFS INH Q4 PRN for SOB/Wheezing Aspirin (Aspirin Ec) 81 Mg Tab 81 MG PO DAILY Fenofibrate (Lofibra) 160 Mg Tab 160 MG PO DAILY Fluticasone Propionate (Flovent Hfa) 120 Puffs/66651 Mcg Aero 2 PUFFS INH BID PRN for SOB/Wheezing for 30 Days, #1 INHALER 3 Refills Glucagon (Glucagon Emergency Kit) 1 Mg Kit Hydrochlorothiazide (Hydrochlorothiazide) 25 Mg Tab 25 MG PO DAILY Insulin Aspart (Novolog) 100 Units/Ml Inj 75 UNITS SC DAILY Insulin Glargine (Lantus Solostar) 100 Unit/Ml Inj 43 UNITS SC QPM, PEN Loperamide Hcl (Imodium) 2 Mg Cap 2 MG PO Q4 PRN for PRN, CAP Losartan Potassium (Cozaar) 100 Mg Tab 100 MG PO DAILY, TAB Rosuvastatin Calcium (Crestor) 20 Mg Tab 20 MG PO QPM, TAB Admission Information HPI (per Admitting provider): This is a 66 y/o male with PMH of DM 1, HTN, Dyslipidemia and other problems as outlined below who presents to the ED c/o dizziness that began this morning. Pt reports that he woke up around 0200 with "the room spinning" around him. His sxs were aggravated with laying on his L side and ambulating. Sxs were assoc with nausea and 3 episodes of vomiting. He has never had similar sxs in the past. Pt reports that he has had tinnitus in both his ears for 7-10 years but was told there was nothing that could be done for it. Pt has a 1 month history of URI sxs. Pt denies fever/chills, diplopia, diaphoresis, chest pain, palpitations, SOB, abd pain, bowel or bladder issues, LE edema, calf pain, unilateral weakness, slurred speech, facial droop or difficulty swallowing. In the ED, pt has + orthostatic vitals. electrolytes WNL. Creat 1.5. CT head is negative. Pt currently feel okay as long as he does not move. He will be admitted for further evaluation and treatment. Physical Exam (per Admitting): General Appearance: WD/WN, no apparent distress, + pertinent finding (Pt is sitting up in bed with at bedside ) Head: normocephalic, atraumatic Eyes: normal inspection, PERRL, + pertinent finding (horizontal nystagmus with EOM) ENT: normal ENT inspection, TMs normal (unable to visualize R TM due to cerumen impaction) Neck: supple Respiratory/Chest: chest non-tender, lungs clear, normal breath sounds, no respiratory distress Cardiovascular: regular rate, rhythm, no edema, no murmur Abdomen/GI: normal bowel sounds, non tender, soft Back: normal inspection Extremities/Musculoskelatal: normal inspection, no calf tenderness, no pedal edema Neurologic/Psych: coremaker pipe II-XII nml as tested, no motor/sensory deficits, alert , normal mood/affect, oriented x 3 Skin: normal color, warm/dry Hospital Course VERTIGO Mostly related to vestibular neuritis Recent episode of URI CT head and MRI of the head are negative Asymptomatic On Prednisone taper Neuro on board Physical therapy on board and pt safe to be discharge home Recommend vestibular rehab as an outpatient PT NAUSEA/VOMITING Resolved CKD STAGE 3 -creatinine baseline around 1.5 Today creatine 1.4 continue monitor BMP avoid nephrotoxic agents DM 1 A1C 7.5 (10/08/16) Monitor BS due to the prednisone cont Lantus and insulin coverage ASTHMA -stable -cont PRN inhaler HTN continue monitor BP -continue DYSLIPIDEMIA -cont statin and fenofibrate DVT PROPHYLAXIS -subq heparin CODE STATUS FULL CODE DISPOSITION Will discharge home today Total time spent on discharge = 35 minutes This includes examination of the patient, discharge planning, medication reconciliation, and communication with other providers. Discharge Instructions Discharge Instructions Admission Reason for Admission: Vertigo Discharge Discharge Diagnosis / Problem: vestibular neuritis, Diabetes, Asthma Discharge Goals Goal(s): Decrease discomfort, Improve function, Improve disease control Activity Recommendations Activity Limitations: resume your previous activity (as tolerated) . Instructions / Follow-Up Instructions / Follow-Up Please follow up with Dr. Santana on Oct 15 at 11:30 am Fall precaution Follow up with physical therapy for vestibular rehab No driving for now until your symptoms completely resolve Current Hospital Diet Patient's current hospital diet: Diabetes Type 1 Diet Discharge Diet Recommended Diet: Diabetes Type 1 Diet Pending Studies Studies pending at discharge: no Laboratory Results Hemoglobin A1c Test 10/08/16 06:36 Range/Units Estimated Average Glucose 169 mg/dl Hemoglobin A1c 7.5 H 4.5-5.6 % Medical Emergencies . Who to Call and When: Medical Emergencies: If at any time you feel your situation is an emergency, please call 911 immediately. . Non-Emergent Contact Non-Emergency issues call your: Primary Care Provider Call Non-Emergent contact if: you have any medication questions . . "Provider Documentation" section prepared by Gisselle Olivas. VTE Core Measure Inpt VTE Proph given/why not?: Unfractionated heparin SQ Additional Copies To Fiona Santana D.O.
== END 2016-10-08 17:31 | disposition home or self-care (01) ==
LOC: CANRESERV → ENRESERVDT → ENRESERVTM → EDBD 07:14 → C.EDB 07:15 → C.MED 13:16 → EDBEDREQSVC 13:27
PROVIDERS: ADMIT Hospitalist; ATTEND Internal Medicine
DX: R42 Dizziness and giddiness (principal); H81.20 Vestibular neuronitis, unspecified ear; E10.9 Type 1 diabetes mellitus without complications; J45.909 Unspecified asthma, uncomplicated; E78.5 Hyperlipidemia, unspecified; I12.9 Hypertensive chronic kidney disease with stage 1 through stage 4 chronic kidney disease, or unspecified chronic kidney disease; N18.3 Chronic kidney disease, stage 3 (moderate); Z51.81 Encounter for therapeutic drug level monitoring; Z79.899 Other long term (current) drug therapy; Z79.82 Long term (current) use of aspirin; Z87.891 Personal history of nicotine dependence